=== PATIENT | female | born 1980 | race Caucasian/White ===

== ENCOUNTER 2017-09-04 01:26 | Inpatient (IN) | payer SELFPAY ==
[2017-09-04] MEDS ORDERED: CEFAZOLIN 2 GM/D5W RTU 2 GM/50 ML RTUPB IV ONE ×2 (02:30→02:46)
[2017-09-04] MEDS ORDERED: CITRIC ACID/SODIUM CITRATE ORAL SOLN 15 ML UDCUP PO ONE (02:31)
[2017-09-04] MEDS ORDERED: CITRIC ACID/SODIUM CITRATE ORAL SOLN 15 ML UDCUP ONE (02:46)
[2017-09-04] MEDS: RINGERS SOLUTION,LACTATED 1,000 ML IV PRN ×2 (02:54→06:39)
[2017-09-04] MEDS ORDERED: KETOROLAC TROMETHAMINE INJ/PF 30 MG/1 ML SDV ONE (02:57)
[2017-09-04] MEDS ORDERED: FENTANYL CITRATE INJ/PF 100 MCG/2 ML AMPUL ONE ×3 (02:57→06:51)
[2017-09-04] MEDS ORDERED: MIDAZOLAM 2 MG/2 ML INJ ONE (02:57)
[2017-09-04] MEDS ORDERED: EPHEDRINE SULFATE INJ 50 MG/1 ML AMPULE ONE (02:57)
[2017-09-04] MEDS ORDERED: OXYTOCIN 10 UNIT/ML VIAL ONE ×2 (02:57→03:40)
[2017-09-04] MEDS ORDERED: OXYTOCIN/NORMAL SALINE 20 UNIT/1,000 ML RTUINJ ONE (02:58)
[2017-09-04] MEDS ORDERED: ONDANSETRON HCL INJ/PF 4 MG/2 ML SDV ONE (02:58)
[2017-09-04] MEDS ORDERED: ACETAMINOPHEN 100 ML IV ONE (02:58)
[2017-09-04 03:05] LABS: ABSOLUTE EOSINOPHILS # (AUTO) 0.1 10^3/uL (0.0-0.6); ABSOLUTE LYMPHOCYTES (AUTO) 2.5 10^3/uL (0.5-4.7); ABSOLUTE MONOCYTES (AUTO) 0.7 10^3/uL (0.1-1.4); BASOPHILS % (AUTO) 0.2 % (0-2); EOSINOPHILS % (AUTO) 0.8 % (0-6); HEMOGLOBIN 12.2 g/dL (12.0-15.5); LYMPHOCYTES % (AUTO) 20.1 % (13-45); MEAN CORPUSCULAR HEMOGLOBIN 31.6 pg (27.0-33.4); MEAN CORPUSCULAR HGB CONC 34.8 g/dL (32.0-36.0); MEAN CORPUSCULAR VOLUME 91 fl (80-97); MONOCYTES % (AUTO) 5.8 % (3-13); PLATELET COUNT 202 10^3/uL (150-450); RED BLOOD COUNT 3.84 10^6/uL (3.72-5.28); SEGMENTED NEUTROPHILS % (AUTO) 73.1 % (42-78); TOTAL CELLS COUNTED % (AUTO) 100 %; WHITE BLOOD COUNT 12.3 10^3/uL (4.0-10.5)
[2017-09-04 03:19] LABS: APPEARANCE,URINE CLEAR; BILIRUBIN,URINE NEGATIVE (NEGATIVE); COLOR,URINE COLORLESS; GLUCOSE, URINE NEGATIVE (NEGATIVE); KETONES,URINE NEGATIVE (NEGATIVE); LEUKOCYTE ESTERASE,URINE NEGATIVE (NEGATIVE); NITRITE,URINE NEGATIVE (NEGATIVE); PROTEIN,URINE NEGATIVE (NEGATIVE); URINE SPECIFIC GRAVITY 1.002; UROBILINOGEN,URINE NEGATIVE mg/dL (<2.0)
[2017-09-04 03:36] LABS: URINE AMPHETAMINES SCREEN NEGATIVE; URINE BARBITURATES SCREEN NEGATIVE; URINE BENZODIAZEPINES SCREEN NEGATIVE; URINE COCAINE SCREEN NEGATIVE; URINE METHADONE SCREEN NEGATIVE; URINE PHENCYCLIDINE SCREEN NEGATIVE
[2017-09-04 03:39] LABS: URINE MARIJUANA (THC) SCREEN UNCONFIRMED POSITIVE
[2017-09-04] MEDS ORDERED: MORPHINE SULFATE 10 MG/ML INJ ONE ×2 (04:55→05:32)
[2017-09-04] MEDS ORDERED: PROMETHAZINE HCL INJ 25 MG/1 ML VIAL IV PRN (05:14)
[2017-09-04] MEDS ORDERED: DIPH/PERTUSS(ACELL)/TETANUS VAC/PF 0.5 ML SYR (>=10YO) IM PRN (05:14)
[2017-09-04] MEDS ORDERED: OXYTOCIN/NORMAL SALINE 20 UNIT/1,000 ML RTUINJ IV PRN (05:14)
[2017-09-04] MEDS ORDERED: SIMETHICONE 80 MG TAB.CHEW PO PRN (05:14)
[2017-09-04] MEDS ORDERED: MEASLES,MUMPS&RUBELLA VACC/PF 0.5 ML VIAL SUBCUT PRN (05:14)
[2017-09-04] MEDS ORDERED: ACETAMINOPHEN 325 MG TABLET PO PRN (05:14)
[2017-09-04] MEDS ORDERED: OXYCODONE-ACETAMINOPHEN 5-325 MG TABLET PO PRN (05:14)
--- NOTE | 2017-09-04 05:38 | OPERATIVE REPORT E ---
Operative Report NAME: ANCELMO CONNELLY : 1980 AGE: 37Y DATE OF SURGERY: 09/04/2017 ROOM: LR200 PREOPERATIVE DIAGNOSES: 1. Intrauterine , 38 weeks 2 days, previous section x2, active labor. 2. Multiparity. POSTOPERATIVE DIAGNOSES: 1. Intrauterine , 38 weeks 2 days, previous section x2, active labor. 2. Multiparity. OPERATIONS: 1. Repeat low-transverse section. 2. Bilateral tubal ligation. SURGEON: VIANNEY BARCLAY M.D. ANESTHESIA: Spinal. ESTIMATED BLOOD LOSS: *------* COMPLICATIONS: None. FINDINGS: Patient delivered a 7-pound 0-ounce female with of 8 and 9 from vertex presentation. The amniotic fluid was faintly stained. There were diffuse adhesions involving the subcutaneous layer, as well as the bladder flap region. The lower uterine segment was quite thin and essentially was just a membrane without significant muscularis. There was throughout the case slight oozing from multiple sites due to the diffuse adhesive process. DESCRIPTION OF OPERATION: The patient was prepped and draped in the usual fashion under spinal anesthetic in the supine position. A repeat Pfannenstiel was made, which was carried sharply and bluntly through all layers. The peritoneal reflection was identified, grasped, entered and extended in linear fashion. A bladder blade was inserted for exposure and the peritoneal reflection exposed. This reflection was incised and extended bilaterally and similar in fashion. The bladder was then bluntly dissected free from the underlying lower uterine segment and the bladder blade reapproximated, thus reflecting the bladder out of the operative field. A lower transverse incision was then made in the uterus, which once entered was widened manually. It is of note that it appeared to be just the membrane and no significant muscularis. The baby was delivered without difficulty from vertex presentation. When head was clear, nasopharynx was suctioned with bulb. The remainder of the baby was then delivered, placed on mother's abdomen and the cord was clamped x2, cut and baby handed off to nursery nurse in attendance. Cord blood was obtained and the placenta then manually removed. The uterus was exteriorized and the intrauterine cavity were free of blood clots and membranes. The uterus was then closed in 2 layers with the use of O Vicryl suture, first using a continuous anterior locking stitch and a second layer a running stitch. As stated, this layer was quite thin. Bladder flap was reapproximated with a running 3-0 Vicryl suture. A bilateral tubal ligation was then performed by creating a defect in the mesosalpinx with cutting Bovie and tying each end of the approximately 3 cm segment with a free tie of 2-0 plain suture. The intervening tubal segment was excised and sent to pathology. The process was repeated in a similar fashion on both sides. The right tube did require some oversewing because of some bleeding from the mesosalpinx. The uterus was placed into the abdominal cavity and the gutters were free of blood clot and membrane. The abdominal peritoneum was then closed with a running 3-0 Vicryl suture, fascia with a continuous O interlocking Vicryl suture, subcutaneous layer with running 3-0 Vicryl suture, skin with 4-0 subcuticular Vicryl suture. Sponge, needle and instrument counts were correct. The patient tolerated the procedure well and was taken to recovery in stable condition. DICTATING PHYSICIAN: VIANNEY BARCLAY M.D. [id number] PHY#: [id number] ID: [id number] JOB#: [id number] ACCT: [id number] cc:VIANNEY BARCLAY M.D. >
[2017-09-04] MEDS ORDERED: IBUPROFEN 800 MG TABLET PO SCH (06:00)
[2017-09-04] MEDS ORDERED: INFLUENZA ADLT QUAD (36MOS+) 2017-18 VAC 0.5 ML SYR IM PRN (07:54)
[2017-09-04] MEDS ORDERED: HYDROMORPHONE HCL INJ/PF 2 MG/ML AMPULE IV PRN (08:35)
[2017-09-04] MEDS ORDERED: HYDROMORPHONE HCL INJ/PF 2 MG/ML AMPULE ONE (08:49)
[2017-09-04] MEDS: PRENATAL VITAMIN W DHA CAPSULE PO SCH (08:56)
[2017-09-04] MEDS: DOCUSATE SODIUM 100 MG CAPSULE PO SCH ×2 (08:57→18:10)
[2017-09-04] MEDS: OXYCODONE-ACETAMINOPHEN 5-325 MG TABLET PO PRN ×3 (11:42→22:24)
[2017-09-04] MEDS: KETOROLAC TROMETHAMINE INJ/PF 30 MG/1 ML SDV IV SCH ×2 (11:43→20:50)
[2017-09-05] MEDS: OXYCODONE-ACETAMINOPHEN 5-325 MG TABLET PO PRN ×5 (02:49→21:03)
[2017-09-05] MEDS: IBUPROFEN 800 MG TABLET PO SCH ×4 (05:12→17:01)
--- NOTE | 2017-09-05 05:33 | Delivery Summary ---
Del Sum A-C Datetime Report Generated by CPN: 09/05/2017 05:33 DELIVERY PERSONNEL DELIVERY PERSONNEL: [id number] Delivery Doctor:: Mark Clark MD Anesthesiologist:: Naomy Ledezma MD GOLF BALL COVER TREATER:: Dallas Patton CRNA Labor and Delivery Nurse:: Katherine Rand RNdigital photo printer Nurse:: Clara Helms RN Neonatal Nurse Practitioner:: OSIEL Chen Nursery Nurse:: Demi Urbano RN Director Of Math/LEATHER COLORER: Yashira Steele, ELECTRICAL TESTER Director Of Math/LEATHER COLORER: Meera Louie ST MATERNAL INFORMATION Delivery Anesthesia: Spinal Medications After Delivery: Pitocin Bolus-Please Comment Maternal Complications: None LABOR SUMMARY EDC: 09/16/2017 00:00 No. Babies in Womb: 1 Attempted: No Labor Anesthesia: None LABOR INFORMATION Reason for Induction: Not Applicable Onset of Labor: 09/04/2017 01:47 Oxytocin: N/A Group B Beta Strep: unknown Antibiotics # of Doses: 0 Antibiotics Time of Last Dose: n/a Steroids Given: None Reason Steroids Not Administered: Not Applicable MEMBRANES Membranes Rupture Method: Artificial Rupture of Membranes: 09/04/2017 03:38 (Annotations: Data stored by [facility] on behalf of user) Length of Rupture (hr): 0.02 Amniotic Fluid Color: Light Meconium Amniotic Fluid Amount: Moderate Amniotic Fluid Odor: Normal STAGES OF LABOR Stage 3 hr: 0 Stage 3 min: 0 Total Time in Labor hr: 1 Total Time in Labor min: 52 VAGINAL DELIVERY Episiotomy: None Laceration #1: None Laceration Extension #1: N/A Laceration Repair: Not Applicable Sponge Count Correct: N/A Sharps Count Correct: N/A CSECTION DELIVERY Primary Indication: Repeat Elective CSection Urgency: Non-Scheduled CSection Incidence: Repeat Labor: Labor Elective: N/A CSection Incision: N/A BABY A INFORMATION Infant Delivery Date/Time: 09/04/2017 03:39 Method of Delivery: Born in Route : No : N/A Forceps: N/A Vacuum Extraction: N/A Shoulder Dystocia : No PRESENTATION/POSITION BABY A Presentation: Cephalic Cephalic Presentation: Vertex Vertex Position: Left Occipital Anterior Breech Presentation: N/A PLACENTA INFORMATION BABY A Placenta Delivery Time : 09/04/2017 03:39 Placenta Method of Delivery: Manual Removal Placenta Status: Delivered SCORES BABY A Heart Rate 1 min: >100 bpm Resp Effort 1 min: Good Cry Reflex Irritability 1 min: Cough or Sneeze or Pulls Away Muscle Tone 1 min: Active Motion Color 1 min: Blue/Pale SCORE 1 MIN: 8 Heart Rate 5 min: >100 bpm Resp Effort 5 min: Good Cry Reflex Irritability 5 min: Cough or Sneeze or Pulls Away Muscle Tone 5 min: Active Motion Color 5 min: Body Cleona, Extremities Blue SCORE 5 MIN: 9 INFANT INFORMATION BABY A Gestational Age at Delivery: 38.2 Gestational Status: Early Term- 37- 38.6 Weeks Infant Outcome : Liveborn Infant Condition : Stable Infant Sex: Female IDENTIFICATION BABY A Verification Date/Time: 09/04/2017 03:40 ID Band Number: [id number] Mother's Name Verified: Yes RN Verifying Infant: Rebecca Mccarthyco, RN Additional Verifying Personnel: Donna Monte RN WEIGHT/LENGTH BABY A Birthweight (gm): 3180 Weight (lb): 7 Weight (oz): 0 Infant Length (in): 19.50 Length (cm): 49.53 CORD INFORMATION BABY A No. Cord Vessels: 3 Nuchal Cord : N/A Cord Blood Taken: Yes-For Eval (Mom's Blood Type - or O+) Infant Suction: Mouth; Nose ASSESSMENT BABY A Complications: Meconium Physical Findings at Delivery: Other Physical Findings- Other: See full nursery assessment Respirations: Appears Normal Skin to Skin: No Patient Insurance Clerk/ALS Called : Yes Infant Care By: Alessia Urbano RN _ Matthieu Maldonado VP BIOLOGY Transferred To: Nursery BABY B INFORMATION : N/A
[2017-09-05 08:26] LABS: HEMATOCRIT 34.9 % (36.0-47.0); MEAN CORPUSCULAR HEMOGLOBIN 31.4 pg (27.0-33.4); MEAN CORPUSCULAR HGB CONC 34.5 g/dL (32.0-36.0); MEAN CORPUSCULAR VOLUME 91 fl (80-97); PLATELET COUNT 192 10^3/uL (150-450); RED BLOOD COUNT 3.84 10^6/uL (3.72-5.28); RED CELL DISTRIBUTION WIDTH 12.8 % (11.5-14.0); WHITE BLOOD COUNT 9.7 10^3/uL (4.0-10.5)
--- NOTE | 2017-09-05 09:11 | PDOC PROGRESS REPORT ---
Subjective-OB Subjective: Post Delivery Day: 37 year old. Denies any needs at this time, is passing gas, tolerating diet, lochia is stable, pain well controlled, voiding without difficulty Physical Exam (OB) Vital Signs: Temp Pulse Resp BP Pulse Ox 98.1 F 82 20 117/61 98 09/05/17 08:09 09/05/17 08:09 09/05/17 03:14 09/05/17 08:09 09/05/17 08:09 Intake & Output 09/04/17 09/05/17 09/06/17 06:59 06:59 06:59 Output Total 1999 Balance -1999 Weight 77.1 kg - PIH/Pre-Eclampsia DTR's: 1 + Clonus: Negative Headache: Absent Epigastric Pain: No Visual Changes: No - Dressing Removed: Yes Incision: Open Closure Type: Sutures - Lochia Lochia Amount: Scant < 10 ml Lochia Color: Rubra/Red - Abdomen Description: Soft, Flat Hernia Present: No Fundal Description: Firm, Midline Fundal Height: u/u - u/2 Objective-Diagnostic Laboratory: 09/05/17 07:42 09/05/17 07:42 WBC 9.7 RBC 3.84 Hgb 12.0 Hct 34.9 L MCV 91 MCH 31.4 MCHC 34.5 RDW 12.8 Plt Count 192 Assessment and Plan(PN) - Assessment and Plan (1) Asthma Qualifiers: Asthma severity: unspecified severity Asthma persistence: unspecified Asthma complication type: unspecified Qualified Code(s): J45.909 - Unspecified asthma, uncomplicated Is this a current diagnosis for this admission?: Yes Plan: monitor (2) delivery delivered Is this a current diagnosis for this admission?: Yes Plan: routine postop care (3) Gestational diabetes Qualifiers: Gestational diabetes mellitus control: unspecified Trimester: unspecified trimester Qualified Code(s): O24.419 - Gestational diabetes mellitus in , unspecified control Is this a current diagnosis for this admission?: Yes Plan: yearly f/u pp f/u - Time Spent with Patient Time with patient: Less than 15 minutes Critical Time spent with patient: Less than 15 minutes Medications reviewed and adjusted accordingly: Yes - Disposition Anticipated Discharge: Home Within: within 24 hours
[2017-09-05] MEDS: PRENATAL VITAMIN W DHA CAPSULE PO SCH (10:20)
[2017-09-05] MEDS: DOCUSATE SODIUM 100 MG CAPSULE PO SCH ×2 (10:21→17:01)
[2017-09-06] MEDS: IBUPROFEN 800 MG TABLET PO SCH ×3 (00:07→12:21)
[2017-09-06] MEDS: OXYCODONE-ACETAMINOPHEN 5-325 MG TABLET PO PRN ×3 (01:48→12:21)
--- NOTE | 2017-09-06 09:02 | PDOC PROGRESS REPORT ---
Subjective-OB Subjective: Post Delivery Day: 37 year old. Denies any needs at this time Doing well, no c/o, holding baby, hsb in room, pain under control, passing gas, no bm, had BTL, scant lochia Physical Exam (OB) Vital Signs: Temp Pulse Resp BP Pulse Ox 97.6 F 64 16 106/53 L 99 09/06/17 03:48 09/06/17 03:48 09/06/17 03:48 09/06/17 03:48 09/06/17 03:48 Intake & Output 09/05/17 09/06/17 09/07/17 06:59 06:59 06:59 Output Total 1999 Balance -1999 - PIH/Pre-Eclampsia DTR's: 1 + Clonus: Negative Headache: Absent Epigastric Pain: No Visual Changes: No - Dressing Removed: Yes Incision: Well Approximated Closure Type: Sutures - Lochia Lochia Amount: Small 10-25 ml Lochia Color: Rubra/Red - Abdomen Description: Tender, Soft Hernia Present: No Fundal Description: Firm, Midline Fundal Height: u/u - u/2 Objective-Diagnostic Laboratory: 09/05/17 07:42 Assessment and Plan(PN) - Assessment and Plan (1) Asthma Qualifiers: Asthma severity: unspecified severity Asthma persistence: unspecified Asthma complication type: unspecified Qualified Code(s): J45.909 - Unspecified asthma, uncomplicated Is this a current diagnosis for this admission?: Yes (2) delivery delivered Is this a current diagnosis for this admission?: Yes (3) Gestational diabetes Qualifiers: Gestational diabetes mellitus control: unspecified Trimester: unspecified trimester Qualified Code(s): O24.419 - Gestational diabetes mellitus in , unspecified control Is this a current diagnosis for this admission?: Yes - Time Spent with Patient Time with patient: Less than 15 minutes Medications reviewed and adjusted accordingly: Yes - Disposition Anticipated Discharge: Home Within: Other - home today
--- NOTE | 2017-09-06 09:06 | PDOC DISCHARGE SUMMARY ---
Final Diagnosis Discharge Date: 09/06/17 - Final Diagnosis (1) Asthma Is this a current diagnosis for this admission?: Yes (2) delivery delivered Is this a current diagnosis for this admission?: Yes (3) Gestational diabetes Is this a current diagnosis for this admission?: Yes Discharge Data - Discharge Medication Home Medications: Inhaler, Assist Devices [Aerochamber Mv] 1 each MC PRN PRN 02/12/16 Pnv95/Iron Fum/Folic Acid [ Caplet] 1 each PO DAILY 02/12/16 Ibuprofen [Motrin 800 mg Tablet] 800 mg PO Q6 #60 tablet 09/06/17 Oxycodone HCl/Acetaminophen [Percocet 5-325 mg Tablet] 1 tab PO Q4HP PRN #30 tablet 09/06/17 Gestational Age: 38.2 Reason(s) for Admission: Ceasarean Section-Repeat, Gestional Diabetes Admission Note: AMA Procedures: NST, Ultrasound Intrapartum Procedure(s): : Low Cervical, Transverse - [place] Data Baby 1 Female at 1 minute: 8 at 5 minutes: 9 Weight: 3.175 kg Home with Mother: Yes Complications: No - Diagnosis Test Laboratory: Temp Pulse Resp BP Pulse Ox 97.3 F 57 L 16 113/67 99 09/06/17 07:36 09/06/17 07:36 09/06/17 07:36 09/06/17 07:36 09/06/17 07:36 09/04/17 09/04/17 09/05/17 01:38 02:50 07:42 RBC 3.84 3.84 Hgb 12.2 12.0 Hct 35.0 L 34.9 L Urine Opiates Screen NEGATIVE - Discharge information/Instructions Discharge Activity: Activity As Tolerated, Keep Legs Elevated, No Lifting Over 10 Pounds, No Lifting/Push/Pulling Discharge Diet: As Tolerated, Regular Disposition: HOME, SELF-CARE Follow up with: [facility] in: 1, Weeks
[2017-09-06] MEDS: DOCUSATE SODIUM 100 MG CAPSULE PO SCH (10:26)
[2017-09-06] MEDS: PRENATAL VITAMIN W DHA CAPSULE PO SCH (10:26)
[2017-09-06 12:39] VITALS: BP 116/82
--- NOTE | 2017-10-08 10:03 | HISTORY AND PHYSICAL E ---
History and Physical NAME: ANCELMO CONNELLY : 1980 AGE: 37Y ADMITTED: 09/04/2017 ROOM: 227 CHIEF COMPLAINT: Contractions. HISTORY OF PRESENT ILLNESS: The patient is a 37-year-old G3, P2-0-0-2, white female with a history of 2 prior sections, presented to labor and delivery after midnight with a history of contractions occurring for approximately 2 hours. On evaluation to labor and delivery, she was noted to be 5 cm dilated, vertex intact membranes, -2 station, 75% effaced, and to be laya regularly approximately every 3 minutes. Based on this information, arrangements were made to proceed with her repeat section without delay. She is also desirous of a tubal ligation. PAST MEDICAL HISTORY: Reveals the 2 prior sections. Her blood type is O positive. She was receiving care. PHYSICAL EXAMINATION: GENERAL: Shows her to be in [id number] distress secondary to active labor. LUNGS: Clear. HEART: Regular rhythm. ABDOMEN: Gravid. heart tones were normal. PELVIC: As described above. EXTREMITIES: Some minimal edema. ASSESSMENT: 1. Intrauterine 38 weeks, 2 days. 2. Previous section x2. 3. Multiparity. 4. Active labor. PLAN: Patient is admitted this time to undergo repeat section and bilateral tubal ligation. DICTATING PHYSICIAN: VIANNEY BARCLAY M.D. [id number] PHY#: [id number] ID: [id number] JOB#: [id number] ACCT: [id number] cc:VIANNEY BARCLAY M.D. >
== END 2017-09-06 13:30 | disposition home or self-care (01) | DRG 765 ==
LOC: LC 01:26 → LR 02:13 → 2S 07:10
PROVIDERS: ADMIT Obstetrics & Gynecology; ATTEND Obstetrics & Gynecology
PROC: 10D00Z1 Extraction of Products of Conception, Low, Open Approach (ICD-10-PCS; principal; 2017-09-04)
PROC: 0U570ZZ Destruction of Bilateral Fallopian Tubes, Open Approach (ICD-10-PCS; 2017-09-04)
DX: O24.420 Gestational diabetes mellitus in childbirth, diet controlled (principal); O99.324 Drug use complicating childbirth; O99.824 Streptococcus B carrier state complicating childbirth; F12.90 Cannabis use, unspecified, uncomplicated; O99.52 Diseases of the respiratory system complicating childbirth; J45.909 Unspecified asthma, uncomplicated; O34.211 Maternal care for low transverse scar from previous cesarean delivery; N85.8 Other specified noninflammatory disorders of uterus; Z3A.38 38 weeks gestation of pregnancy; Z37.0 Single live birth; Z30.2 Encounter for sterilization
CPT/HCPCS: 1961; 36415; 80307; 81005; 85025; 85027; 86592; 86850; 86900; 86901; 88302; 88307; 90686; 90715; G0480; J0131; J0690; J1170; J1885; J2250; J2270; J2405; J2590; J3010; J3490

== ENCOUNTER → 2019-01-10 | Day surgery (SDC) | payer BC, OTHER ==
--- NOTE | 2019-01-10 11:41 | RADIOLOGY REPORT (SQ) ---
EXAM DESCRIPTION: ARTHRO SHOULDER INJECTION; FLUORO/NEEDLE PLACEMENT COMPLETED DATE/TIME: 01/10/2019 10:51 am REASON FOR STUDY: OTHER SPECIFIED DISORDERS OF CARTILAGE (M94.8X9) M94.8X9 OTHER SPECIFIED DISORDER S OF CARTILAGE, UNSPECIFIED COMPARISON: None. FLUOROSCOPY TIME: 0.2 minutes 1 images saved to PACS. LIMITATIONS: None. PROCEDURE: Procedure, risks, benefits and alternatives explained to patient who then gave written co nsent. The right shoulder was marked and a time out was called for correct procedure verification. P osterior entry site marked using fluoroscopic guidance. Shoulder prepped and draped using sterile te chnique. Local anesthesia achieved using 1% lidocaine injection. Hypodermic needle introduced into the joint space under direct fluoroscopic visualization. Non-ionic contrast instilled to confirm intr a-articular position. Dilute gadolinium solution then injected. Needle removed and entry site covere d with sterile bandage. No immediate complications noted. TECHNIQUE: Digital images acquired during fluoroscopy and stored on PACS. Patient immediately take n to the MR suite for additional imaging. INJECTION LOCATION: Posterior right shoulder. CONTRAST TYPE AND AMOUNT: 1 cc Omnipaque, 10 cc Dotarem/Saline mixture. IMPRESSION: SUCCESSFUL NEEDLE PLACEMENT AND INJECTION FOR RIGHT SHOULDER MR ARTHROGRAM USING POSTERI OR APPROACH. COMMENT: Quality ID [id number]: Final reports for procedures using fluoroscopy that document radiation exp osure indices, or exposure time and number of fluorographic images (if radiation exposure indices are not available) TECHNICAL DOCUMENTATION: JOB ID: [id number] [employer]- All Rights Reserved Reading location - IP/workstation name: [email or web address]
--- NOTE | 2019-01-10 13:16 | RADIOLOGY REPORT (SQ) ---
EXAM DESCRIPTION: MRI RT UPPER JOINT WITH COMPLETED DATE/TIME: 01/10/2019 11:28 am REASON FOR STUDY: OTHER SPECIFIED DISORDERS OF CARTILAGE (M94.8X9) M94.8X9 OTHER SPECIFIED DISORDER S OF CARTILAGE, UNSPECIFIED COMPARISON: None. TECHNIQUE: Right shoulder images acquired and stored on PACS. Oblique coronal, oblique sagittal, and axial imaging to include fat sensitive sequences as T1, water sensitive sequences as FST2/STIR, and contrast sensitive sequences as FST1. LIMITATIONS: None. FINDINGS: JOINT DISTENTION: Adequate. No loose bodies. BONE MARROW AND CORTEX: Prominent cystic changes in the inferior glenoid, see below. No marrow repla cement. No overtly worrisome bone lesion or occult fracture. AC JOINT: Os acromiale. This can be associated with impingement. AC joint intact. GLENOHUMERAL JOINT: No subluxation or dislocation. Minimal inferior humeral head osteophyte formatio n. Chondral loss with extensive underlying subchondral cystic changes and intraosseous ganglion in t he inferior glenoid. There appears to be and extraosseous component of ganglion as well which measur es just over 1 cm, inferior to the glenoid. ROTATOR CUFF: Tendinosis. Partial tear along supraspinatus insertion, it interstitial and undersurfa ce. No full-thickness disruption. No overt cuff muscle atrophy. LABRUM AND BICEPS LABRAL COMPLEX: Irregular tear in the superior labrum involves the biceps anchor wi thout propagation into the biceps tendon. INFERIOR LABRAL COMPLEX: Tear of the inferior labrum is not excluded given the extensive adjacent gle noid cystic changes. Anterior inferior complex looks intact. ADJACENT SOFT TISSUES: No regional mass or axillary adenopathy. OTHER: No other significant finding. IMPRESSION: 1. Superior labral tear. 2. Cuff disease including tendinosis and partial tear. 3. Fairly extensive chondral loss in the lower glenoid with prominent mixed intraosseous and extraoss eous ganglion. TECHNICAL DOCUMENTATION: JOB ID: [id number] [employer]- All Rights Reserved Reading location - IP/workstation name: [email or web address]
== END ==
LOC: RAD 09:54
PROVIDERS: ATTEND Orthopaedic Surgery Sports Medicine
DX: S43.431A Superior glenoid labrum lesion of right shoulder, initial encounter (principal); X58.XXXA Exposure to other specified factors, initial encounter
CPT/HCPCS: 73222; 77002; 23350; A9576